=== PATIENT | female | born 1990 | race Caucasian/White ===

== ENCOUNTER 2022-11-02 14:25 | Emergency (ER) | payer OTHER ==
[~2022-11-02] VITALS: Ht 154.9 cm; Wt 62.6 kg
--- NOTE | 2022-11-02 14:35 | NUR ---
BIBS C/O VAGINAL BLEEDING X 3 DAYS WORST SINCE YESTERDAY. AMBULATORY, PLACED IN BED, AAOX4, BREATHING UNLABORED SATURATING AT 97%RA
--- NOTE | 2022-11-02 14:41 | NUR ---
URINE SAMPLE SENT TO LAB
--- NOTE | 2022-11-02 14:54 | NUR ---
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
--- NOTE | 2022-11-02 15:00 | NUR ---
Chapis perez in [facility] - 11/02/22 at 1604 by SHARDA PATIENT TAKEN TO CT VIA LUL[facility]
--- NOTE | 2022-11-02 15:00 | NUR ---
U/S TECH AT BEDSIDE
[2022-11-02 15:11] LABS: BASOPHILS % (AUTO) 0.5 % (0.0-2.0); EOSINOPHILS % (AUTO) 0.7 % (0.0-6.0); HEMATOCRIT 38 % (33-45); HEMOGLOBIN 12.2 g/dL (11.5-14.8); LYMPHOCYTES # (AUTO) 1.2 K/uL (0.8-4.8); MEAN CORPUSCULAR HGB CONC 32 g/dl (31.0-36.0); MEAN CORPUSCULAR VOLUME 88 fL (82-100); MONOCYTES # (AUTO) 0.6 K/uL (0.1-1.30); MONOCYTES % (AUTO) 8.1 % (2.0-12.0); NEUTROPHILS # (AUTO) 5.8 K/uL (1.8-8.9); NEUTROPHILS % (AUTO) 75.7 % (43.0-81.0); PLATELET COUNT (AUTO) 264 K/uL (150-450); RED BLOOD CELL COUNT(AUTO) 4.33 MIL/uL (4.0-5.2); WHITE BLOOD COUNT (AUTO) 7.7 K/uL (4.3-11.0)
[2022-11-02 15:31] LABS: CALCIUM, SERUM 8.8 mg/dL (8.5-10.1); CREATININE 0.7 mg/dL (0.6-1.3); POTASSIUM 3.9 mmol/L (3.5-5.1)
[2022-11-02 15:32] LABS: BILIRUBIN,URINE NEGATIVE (NEGATIVE); COLOR,URINE YELLOW (YELLOW); LEUKOCYTE ESTERASE ,URINE NEGATIVE (NEGATIVE); NITRITE, URINE NEGATIVE (NEGATIVE); PH,URINE 8.5 (5.0-8.0); PROTEIN,URINE NEGATIVE (NEGATIVE); UGLUCOSE NEGATIVE (NEGATIVE); UROBILINOGEN,URINE 0.2 EU/dL (0.2)
[2022-11-02 15:43] LABS: ALBUMIN 4.1 g/dL (3.4-5.0); BILIRUBIN,DIRECT 0.1 mg/dL (0.0-0.2); BILIRUBIN,TOTAL 0.4 mg/dL (0.2-1.0); TOTAL PROTEIN, SERUM 8.2 g/dL (6.4-8.2)
--- NOTE | 2022-11-02 16:30 | NUR ---
Patient discharged to home in stable condition. Written and verbal after care instructions given. Patient verbalizes understanding of instruction.
[2022-11-02 16:40] VITALS: BP 114/70
== END 2022-11-02 16:30 | disposition home or self-care (01) ==
LOC: ER 14:30
DX: N93.9 Abnormal uterine and vaginal bleeding, unspecified (principal); R10.2 Pelvic and perineal pain
CPT/HCPCS: 36415; 76856-TC; 80048-TC; 80076-TC; 84702-TC; 85025-TC; 86850-TC